=== PATIENT | male | born 1995 | race Caucasian/White ===

== ENCOUNTER 2017-02-21 20:37 | Emergency (ER) | payer OTHER ==
[2017-02-21 20:48] VITALS: BP 144/72
[2017-02-21 23:14] LABS: Urine Bilirubin Negative (Negative); Urine Glucose Negative (Negative); Urine Nitrite Negative (Negative)
[2017-02-21] MEDS ORDERED: Ibuprofen TAB* 400 MG PO ONE (23:59)
--- NOTE | 2017-02-22 08:16 | RAD ---
Indication: Right scrotal and testicle pain. Real-time sonography of the scrotum was performed. The right testis measures 4.5 x 2.7 x 3.0 cm. No intratesticular masses are noted. Normal flow is noted in the right testis. The epididymis measures 12 x 10 mm. Small right epididymal cyst measures 5 mm. The left testis measures 4.3 x 2.6 x 2.9 cm. Normal flow is noted in the left testis with no intratesticular masses. The epididymis measures 12 x 11 mm. No evidence of hydrocele is noted. IMPRESSION: No intratesticular masses are noted. No evidence of torsion is noted with flow in both testes. Small right epididymal cyst.
--- NOTE | 2017-03-06 23:57 | ED ---
Opal Nielson Rebecca, scribed for Jim Oakley on 02/21/17 at 2231 . GI/ HPI - HPI Summary HPI Summary: Pt is a 21 y/o M who presents to ED c/o R testicular pain. Pain began this morning at approximately 0800 and is currently moderate, ranked 4/10. Sx aggravated by movement, alleviated by nothing. Additionally c/o mlid abdominal pain in the RLQ. Denies penile discharge. Denies any recent exercise. Confirms that he is sexually active and uses protection. - History of Current Complaint Chief Complaint: EDUrogenitalProblems Time Seen by Provider: 02/21/17 22:22 Stated Complaint: TESTICULAR PAIN Hx Obtained From: Patient Onset/Duration: Started Hours Ago, Still Present Current Severity: Moderate Pain Intensity: 4 Additional Locations for Males: Testicles - Right Associated Signs and Symptoms: Positive: Abdominal Pain - mild RLQ Additional Signs & Symptoms: Negative: Penile Discharge Aggravating Factor(s): Movement Alleviating Factor(s): Nothing - Additional Pertinent History Primary Care Physician: [facility] - Allergy/Home Medications Allergies/Adverse Reactions: Allergies Allergy/AdvReac Type Severity Reaction Status Date / Time No Known Allergies Allergy Verified 02/21/17 20:49 PMH/Surg Hx/FS Hx/Imm Hx Endocrine/Hematology History: Denies: Hx Diabetes Cardiovascular History: Denies: Hx Coronary Artery Disease, Hx Hypertension Sensory History: Reports: Hx Contacts or Glasses Opthamlomology History: Reports: Hx Contacts or Glasses - Surgical History Surgery Procedure, Year, and Place: Bilateral myringotomy tubes as a child. Infectious Disease History: No Infectious Disease History: Denies: Traveled Outside the [place] in Last 30 Days - Family History Known Family History: Negative: Cardiac Disease, Hypertension, Diabetes - Social History Occupation: Student Alcohol Use: Rare Substance Use Type: Reports: None Smoking Status (MU): Never Smoked Tobacco Review of Systems Positive: Abdominal Pain - mild RLQ Positive: pain - R testicular pain. Negative: discharge All Other Systems Reviewed And Are Negative: Yes Physical Exam - Summary Physical Exam Summary: Appearance: Well appearing, no pain distress Skin: warm, dry, reflects adequate perfusion Head/face: normal Eyes: EOMI, VIOLETA ENT: normal Neck: supple, nontender Respiratory: CTA, breath sounds present Cardiovascular: RRR, pulses symmetrical Abdomen: nontender in the abdomen, soft Bowel: present Musculoskeletal: normal, strength/ROM intact Neuro: normal, sensory motor intact, A&Ox3 Genital: Mild tenderness over the right testicular area Triage Information Reviewed: Yes Vital Signs On Initial Exam: Initial Vitals Temp Pulse Resp BP Pulse Ox 98.7 F 69 12 144/72 99 02/21/17 20:47 02/21/17 20:47 02/21/17 20:47 02/21/17 20:47 02/21/17 20:47 Vital Signs Reviewed: Yes Diagnostics - Vital Signs Vital Signs Temp Pulse Resp BP Pulse Ox 02/21/17 20:47 98.7 F 69 12 144/72 99 - Laboratory Lab Statement: Any lab studies that have been ordered have been reviewed, and results considered in the medical decision making process. - Ultrasound No standard instances Ultrasound Interpretation: No Acute Changes - Testicular US: No testicular torsin bilaterally. Unremarkable left epididymis. 5 mm incidental right epididymal cyst. No hydroceles. ED physician reviewed radiology report and agrees. Ultrasound Interpretation Completed By: Radiologist DORIS Course/Dx - Course Assessment/Plan: Pt is a 21 y/o M who presents to ED c/o R testicular pain. Pain began this morning at approximately 0800 and is currently moderate, ranked 4/10. Sx aggravated by movement, alleviated by nothing. Additionally c/o mlid abdominal pain in the RLQ. Denies penile discharge. Denies any recent exercise. Confirms that he is sexually active and uses protection. Testicular US reveals no acute findings. In the ED course, pt was given motrin. He will be D/C to home with Dx of scrotal pain with an Rx for Motrin and a follow up with Dr. Duncan. He understands and agrees. Patient medications reviewed this visit. Elevated BP noted and advised to f/u with PCP. - Diagnoses Provider Diagnoses: Scrotal pain Discharge - Discharge Plan Condition: Stable Disposition: HOME Prescriptions: Ibuprofen TAB* [Motrin TAB* 600 MG] 600 mg PO Q8H PRN #20 tab MDD 3 PRN Reason: Pain Patient Education Materials: Scrotal Pain (ED) Referrals: Jordin Duncan MD [Medical Doctor] - The documentation as recorded by the Opal robert Rebecca accurately reflects the service I personally performed and the decisions made by , Jim Oakley.
== END 2017-02-22 00:22 | disposition home or self-care (01) ==
LOC: ED 20:37
DX: N50.811 Right testicular pain (principal)
CPT/HCPCS: 76870; 81003; 99281; A9270-GY

== ENCOUNTER 2018-06-22 20:29 | Emergency (ER) | payer OTHER ==
[2018-06-22 20:39] VITALS: BP 156/88
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
--- NOTE | 2018-06-23 08:24 | UC ---
- Progress Note Progress Note: RADIOLOGY REPORT REVIEWED. NO ACUTE OSSEOUS INJURY. NO CHANGE IN MGMT. Course/Dx - Diagnoses Provider Diagnoses: Nasal trauma Discharge - Sign-Out/Discharge Documenting (check all that apply): Post-Discharge Follow Up All imaging exams completed and their final reports reviewed: Yes - Discharge Plan Condition: Stable Disposition: HOME Patient Education Materials: Nasal Fracture (ED) Referrals: Rashaad Ashby MD [Medical Doctor] - If Needed No Primary Care Phys,NOPCP [Primary Care Provider] - Additional Instructions: If you develop a fever, shortness of breath, chest pain, new or worsening symptoms - please call your PCP or go to the ED. Your blood pressure was high at todays visit. Please see your primary provider within 4 weeks for recheck and re-evaluation. Please call ENT at the number below to schedule a follow up appointment regarding your nose injury. - Billing Disposition and Condition Condition: STABLE Disposition: Home
== END 2018-06-22 21:15 | disposition home or self-care (01) ==
LOC: UCEAST 20:29
DX: S09.92XA Unspecified injury of nose, initial encounter (principal); W50.0XXA Accidental hit or strike by another person, initial encounter; Y93.83 Activity, rough housing and horseplay; Y92.9 Unspecified place or not applicable
CPT/HCPCS: 70160; 99211; G0463